=== PATIENT | female | born 1970 | race Caucasian/White ===

== ENCOUNTER 2017-09-07 14:15 | Emergency (ER) | payer OTHER, MEDICAID, SELFPAY ==
[2017-09-07 14:17] VITALS: BP 104/80; PULSE 111; RESP 22; TEMP 36.9; O2SAT 94
--- NOTE | 2017-09-07 14:45 | ED.ALCOHOL ---
HPI - Alcohol <ODALIS Medina - Last Filed: 09/07/17 23:34> General Chief Complaint: Toxicology Problem Stated Complaint: DETOX Time Seen by Provider: 09/07/17 14:45 History of Present Illness HPI narrative: 46-year-old female with history of alcoholism here for medical clearance for detox at [facility]. Patient has a bed available and needs medical clearance. She states her last alcohol intake was earlier today where she had approximately 2 beers. She states that she is under increased stress right now as there is a court date tomorrow for custody of her son. She denies suicidal ideation at this time however she states that she might have suicidal thoughts if she cannot see her son she denies any plan. No was subtle ideation. She denies any illicit drug use. No other concerns or complaints at this time. complaint: medical clearance for detox facility Related Data Home Medications Medication Instructions Recorded Confirmed chlordiazepoxide HCl 25 mg PO Q6H 09/07/17 09/07/17 lorazepam 1 tab PO Q6H 09/07/17 09/07/17 Previous Rx's Medication Instructions Recorded lorazepam See Label Instructions .ROUTE 09/07/17 .COMPLEX #18 tab ondansetron 4 mg PO Q6-8H PRN #10 tab 09/07/17 Allergies Allergy/AdvReac Type Severity Reaction Status Date / Time No Known Drug Allergies Allergy Verified 09/07/17 14:19 Review of Systems <ODALIS Medina - Last Filed: 09/07/17 23:34> Constitutional Denies chills, Denies fever(s), Denies lethargy and Denies weakness Eyes Denies change in vision, Denies eye discharge, Denies irritation and Denies loss of vision ENT Ears, Nose, Mouth, and Throat: Denies change in voice, Denies neck pain and Denies sore throat Cardiovascular Denies chest pain, Denies irregular heart rhythm, Denies lightheadedness, Denies palpitations, Denies dyspnea, Denies dyspnea on exertion and Denies orthopnea Respiratory Denies cough, Denies dyspnea, Denies dyspnea on exertion and Denies wheezing Gastrointestinal Gastrointestinal: Denies abdominal pain, Denies change in bowel habits, Denies diarrhea, Denies nausea and Denies vomiting Genitourinary Denies hematuria, Denies flank pain, Denies urinary incontinence and Denies urinary urgency Musculoskeletal Denies neck pain Integumentary/Breasts Denies pruritus, Denies erythema, Denies rash and Denies wounds Neurologic Denies loss of vision and Denies weakness Psychiatric Reports as per HPI, Denies homicidal ideation and Denies suicidal ideation Comments: Request alcohol detox Endocrine Denies palpitations Allergic/Immunologic Denies wheezing Exam <ODALIS Medina - Last Filed: 09/07/17 23:34> Initial Vital Signs Initial Vital Signs: Vital Signs Temperature 98.5 F 09/07/17 14:17 Pulse Rate 111 H 09/07/17 14:17 Respiratory Rate 22 09/07/17 14:17 Blood Pressure 104/80 09/07/17 14:17 Pulse Oximetry 94 09/07/17 14:17 Const General: cooperative and well developed Nutritional Appearance: well nourished Orientation: alert, awake, oriented x3 and not confused HENMT Nose: nasal discharge Face and sinus: sinus tenderness and dry mucous membranes Mouth: oral mucosae normal and moist mucous membranes Eyes Conjunctivae: conjunctivae normal Sclera: sclerae normal Pupils: PERRL EOM: EOM intact bilaterally Resp Effort & Inspection: normal respiratory effort, able to speak in complete sentences, no respiratory distress and no use of accessory muscles Auscultation: clear to auscultation bilaterally, no rales, no rhonchi and no wheezes Cardio Rate: regular rate Rhythm: regular rhythm Heart Sounds: no click, no gallops, no murmurs and no rubs GI Inspection: non-distended Palpation: soft, no hepatosplenomegaly, No guarding, No pulsatile mass and No tender Auscultation: normal bowel sounds General: No CVA tenderness Psych Speech and Movement: speech and movement normal and speech clear Mood: irritable mood Affect: normal affect Attitude: cooperative Thought Process: normal Thought Content: normal <Ziggy Silver DO - Last Filed: 09/14/17 07:11> Initial Vital Signs Initial Vital Signs: Vital Signs Temperature 98.5 F 09/07/17 14:17 Pulse Rate 111 H 09/07/17 14:17 Respiratory Rate 22 09/07/17 14:17 Blood Pressure 104/80 09/07/17 14:17 Pulse Oximetry 94 09/07/17 14:17 Course <ODALIS Medina - Last Filed: 09/07/17 23:34> Orders Ordered: Discontinued Medications Lorazepam (Ativan) 1 mg PO NOW ONE Stop: 09/07/17 16:38 Last Admin: 09/07/17 16:46 Dose: 1 mg Ondansetron HCl (Zofran Odt) 4 mg PO NOW ONE Stop: 09/07/17 15:15 Last Admin: 09/07/17 15:15 Dose: 4 mg Vital Signs - 8 hr 09/07/17 17:53 Pulse Rate 88 Respiratory Rate 12 Blood Pressure [Left Arm] 138/78 H Pulse Oximetry 99 <Ziggy Silver DO - Last Filed: 09/14/17 07:11> Orders Ordered: Discontinued Medications Lorazepam (Ativan) 1 mg PO NOW ONE Stop: 09/07/17 16:38 Last Admin: 09/07/17 16:46 Dose: 1 mg Ondansetron HCl (Zofran Odt) 4 mg PO NOW ONE Stop: 09/07/17 15:15 Last Admin: 09/07/17 15:15 Dose: 4 mg Vital Signs - 8 hr 09/07/17 17:53 Pulse Rate 88 Respiratory Rate 12 Blood Pressure [Left Arm] 138/78 H Pulse Oximetry 99 MDM - Alcohol <ODALIS Medina - Last Filed: 09/07/17 23:34> Lab Data Result diagrams: 09/07/17 15:41 09/07/17 15:41 Labs: Lab Results 09/07/17 09/07/17 09/07/17 Range/Units 15:30 15:41 15:41 WBC 5.4 (4.5-11.0) X10^3/uL RBC 4.40 (4.0-5.2) X10^6/uL Hgb 14.1 (12.0-16.0) g/dL Hct 42.0 (36-46) % MCV 95.5 (80-100) fL MCH 32.2 (26-34) PG MCHC 33.7 (30-36) % RDW 17.9 H (11.6-14.8) % Plt Count 124 L (150-400) X10^3/uL Neut % (Auto) 37.4 L (50-75) % Lymph % (Auto) 51.5 H (25-40) % Roosevelt % (Auto) 8.5 (3-14) % Eos % (Auto) 1.9 L (2-4) % Baso % (Auto) 0.7 (0-2) % Neut # (Auto) 2000 L (4287-9797) /uL Sodium 139 (137-145) mmol/L Potassium 4.0 (3.4-5.1) mmol/L Chloride 100 (98-107) mmol/L Carbon Dioxide 26 (22-32) mmol/L BUN 11 (7-17) mg/dL Creatinine 0.70 (0.52-1.04) mg/dL Estimated GFR > 60.0 (>60) mL/min BUN/Creatinine Ratio 15.7 (6-22) Glucose 86 (70-100) mg/dL Calcium 9.0 (8.4-10.2) mg/dL Total Bilirubin 0.6 (0.2-1.3) mg/dL AST 475 H (14-36) IU/L ALT 195 H (9-52) IU/L Alkaline Phosphatase 104 (38-126) U/L Total Protein 7.1 (6.3-8.2) g/dL Albumin 4.2 (3.5-5.0) g/dL Globulin 2.9 (1.7-4.1) g/dL Albumin/Globulin Ratio 1.4 (1.0-2.8) TSH (0.47-4.68) uIU/mL Urine Opiates Screen Negative (Negative) Ur Oxycodone Screen Negative (Negative) Urine Methadone Screen Negative (Negative) Ur Barbiturates Screen Negative (Negative) U Tricyclic Antidepress Negative (Negative) Ur Phencyclidine Scrn Negative (Negative) Ur Amphetamines Screen Negative (Negative) U Methamphetamines Scrn Negative (Negative) Ur MDMA Scrn (Ecstasy) Negative (Negative) U Benzodiazepines Scrn Positive H (Negative) Urine Cocaine Screen Negative (Negative) U Marijuana (THC) Screen Negative (Negative) 09/07/17 Range/Units 15:41 WBC (4.5-11.0) X10^3/uL RBC (4.0-5.2) X10^6/uL Hgb (12.0-16.0) g/dL Hct (36-46) % MCV (80-100) fL MCH (26-34) PG MCHC (30-36) % RDW (11.6-14.8) % Plt Count (150-400) X10^3/uL Neut % (Auto) (50-75) % Lymph % (Auto) (25-40) % Roosevelt % (Auto) (3-14) % Eos % (Auto) (2-4) % Baso % (Auto) (0-2) % Neut # (Auto) (1885-9133) /uL Sodium (137-145) mmol/L Potassium (3.4-5.1) mmol/L Chloride (98-107) mmol/L Carbon Dioxide (22-32) mmol/L BUN (7-17) mg/dL Creatinine (0.52-1.04) mg/dL Estimated GFR (>60) mL/min BUN/Creatinine Ratio (6-22) Glucose (70-100) mg/dL Calcium (8.4-10.2) mg/dL Total Bilirubin (0.2-1.3) mg/dL AST (14-36) IU/L ALT (9-52) IU/L Alkaline Phosphatase (38-126) U/L Total Protein (6.3-8.2) g/dL Albumin (3.5-5.0) g/dL Globulin (1.7-4.1) g/dL Albumin/Globulin Ratio (1.0-2.8) TSH 0.48 (0.47-4.68) uIU/mL Urine Opiates Screen (Negative) Ur Oxycodone Screen (Negative) Urine Methadone Screen (Negative) Ur Barbiturates Screen (Negative) U Tricyclic Antidepress (Negative) Ur Phencyclidine Scrn (Negative) Ur Amphetamines Screen (Negative) U Methamphetamines Scrn (Negative) Ur MDMA Scrn (Ecstasy) (Negative) U Benzodiazepines Scrn (Negative) Urine Cocaine Screen (Negative) U Marijuana (THC) Screen (Negative) MDM Narrative Medical decision making narrative: CBC was obtained and was unremarkable. Chem panel shows elevated AST and ALT however is consistent with her prior lab values. TSH was obtained and was normal. Initial Breathalyzer was at 0.158. Rapid urine drug screen shows positive for benzodiazepines no other positive results. She is medically cleared for inpatient alcohol detox with prescription for Ativan taper dose and Zofran. Follow up with primary care provider. Return emergency room for any worsening symptoms. <Ziggy Silver, DO - Last Filed: 09/14/17 07:11> Lab Data Labs: Lab Results 09/07/17 09/07/17 09/07/17 Range/Units 15:30 15:41 15:41 WBC 5.4 (4.5-11.0) X10^3/uL RBC 4.40 (4.0-5.2) X10^6/uL Hgb 14.1 (12.0-16.0) g/dL Hct 42.0 (36-46) % MCV 95.5 (80-100) fL MCH 32.2 (26-34) PG MCHC 33.7 (30-36) % RDW 17.9 H (11.6-14.8) % Plt Count 124 L (150-400) X10^3/uL Neut % (Auto) 37.4 L (50-75) % Lymph % (Auto) 51.5 H (25-40) % Roosevelt % (Auto) 8.5 (3-14) % Eos % (Auto) 1.9 L (2-4) % Baso % (Auto) 0.7 (0-2) % Neut # (Auto) 2000 L (4920-3395) /uL Sodium 139 (137-145) mmol/L Potassium 4.0 (3.4-5.1) mmol/L Chloride 100 (98-107) mmol/L Carbon Dioxide 26 (22-32) mmol/L BUN 11 (7-17) mg/dL Creatinine 0.70 (0.52-1.04) mg/dL Estimated GFR > 60.0 (>60) mL/min BUN/Creatinine Ratio 15.7 (6-22) Glucose 86 (70-100) mg/dL Calcium 9.0 (8.4-10.2) mg/dL Total Bilirubin 0.6 (0.2-1.3) mg/dL AST 475 H (14-36) IU/L ALT 195 H (9-52) IU/L Alkaline Phosphatase 104 (38-126) U/L Total Protein 7.1 (6.3-8.2) g/dL Albumin 4.2 (3.5-5.0) g/dL Globulin 2.9 (1.7-4.1) g/dL Albumin/Globulin Ratio 1.4 (1.0-2.8) TSH (0.47-4.68) uIU/mL Urine Opiates Screen Negative (Negative) Ur Oxycodone Screen Negative (Negative) Urine Methadone Screen Negative (Negative) Ur Barbiturates Screen Negative (Negative) U Tricyclic Antidepress Negative (Negative) Ur Phencyclidine Scrn Negative (Negative) Ur Amphetamines Screen Negative (Negative) U Methamphetamines Scrn Negative (Negative) Ur MDMA Scrn (Ecstasy) Negative (Negative) U Benzodiazepines Scrn Positive H (Negative) Urine Cocaine Screen Negative (Negative) U Marijuana (THC) Screen Negative (Negative) 09/07/17 Range/Units 15:41 WBC (4.5-11.0) X10^3/uL RBC (4.0-5.2) X10^6/uL Hgb (12.0-16.0) g/dL Hct (36-46) % MCV (80-100) fL MCH (26-34) PG MCHC (30-36) % RDW (11.6-14.8) % Plt Count (150-400) X10^3/uL Neut % (Auto) (50-75) % Lymph % (Auto) (25-40) % Roosevelt % (Auto) (3-14) % Eos % (Auto) (2-4) % Baso % (Auto) (0-2) % Neut # (Auto) (8720-1732) /uL Sodium (137-145) mmol/L Potassium (3.4-5.1) mmol/L Chloride (98-107) mmol/L Carbon Dioxide (22-32) mmol/L BUN (7-17) mg/dL Creatinine (0.52-1.04) mg/dL Estimated GFR (>60) mL/min BUN/Creatinine Ratio (6-22) Glucose (70-100) mg/dL Calcium (8.4-10.2) mg/dL Total Bilirubin (0.2-1.3) mg/dL AST (14-36) IU/L ALT (9-52) IU/L Alkaline Phosphatase (38-126) U/L Total Protein (6.3-8.2) g/dL Albumin (3.5-5.0) g/dL Globulin (1.7-4.1) g/dL Albumin/Globulin Ratio (1.0-2.8) TSH 0.48 (0.47-4.68) uIU/mL Urine Opiates Screen (Negative) Ur Oxycodone Screen (Negative) Urine Methadone Screen (Negative) Ur Barbiturates Screen (Negative) U Tricyclic Antidepress (Negative) Ur Phencyclidine Scrn (Negative) Ur Amphetamines Screen (Negative) U Methamphetamines Scrn (Negative) Ur MDMA Scrn (Ecstasy) (Negative) U Benzodiazepines Scrn (Negative) Urine Cocaine Screen (Negative) U Marijuana (THC) Screen (Negative) Discharge Plan Departure Patient Disposition: [facility] Clinical Impression: Alcoholic intoxication Discharge Date/Time: 09/07/17 17:55 Interventions: ED Discharge Assessment Last Done: 09/07/17 17:54 Activity Restrictions/Additional Instructions: Alcohol detoxication care as directed by [facility]. Use Ativan taper dose as prescribed. Use Zofran as needed for nausea. Follow up with primary care provider. Return emergency room for any worsening symptoms. Prescriptions: New lorazepam 1 mg tablet See Label Instructions .ROUTE .COMPLEX Qty: 18 RF: 0 ondansetron 4 mg tablet,disintegrating 4 mg PO Q6-8H PRN (Reason: nausea and vomiting) Qty: 10 RF: 0 No Action lorazepam 0.5 mg Tablet 1 tab PO Q6H RF: 0 chlordiazepoxide HCl 25 mg Capsule 25 mg PO Q6H RF: 0 Referrals: Harman Okeefe MD [Primary Care Provider] - <Ziggy Silver DO - Last Filed: 09/14/17 07:11> Cosign ED Attending Rhonda Attestation: I was available for consultation during this patient's emergency department encounter
[2017-09-07] MEDS: ONDANSETRON 4 MG ODT PO (15:15)
[2017-09-07 15:42] LABS: Urine Amphetamines Negative (Negative); Urine Barbiturates Negative (Negative); Urine Benzodiazepines Positive (Negative); Urine Cocaine Negative (Negative); Urine MDMA Negative (Negative); Urine Methadone Negative (Negative); Urine Methamphetamines Negative (Negative); Urine Morphine/Opi cutoff 2000 Negative (Negative); Urine Oxycodone Negative (Negative); Urine Phencyclidine Negative (Negative); Urine Tetrahydrocannabinol Negative (Negative); Urine Tricyclic Antidepressant Negative (Negative)
[2017-09-07 15:50] LABS: Add Manual Diff / Slide Review NO; Basophils Percent Auto 0.7 % (0-2); Eosinophils Percent Auto 1.9 % (2-4); Hemoglobin 14.1 g/dL (12.0-16.0); Lymphocytes Percent Auto 51.5 % (25-40); Mean Corpuscular HGB Conc 33.7 % (30-36); Mean Corpuscular Hemoglobin 32.2 PG (26-34); Mean Corpuscular Volume 95.5 fL (80-100); Monocytes Percent Auto 8.5 % (3-14); Neutrophils Absolute Auto 2000 /uL (3000-5900); Neutrophils Percent Auto 37.4 % (50-75); Platelet Count 124 X10^3/uL (150-400); Red Cell Distribution Width 17.9 % (11.6-14.8); White Blood Cell Count 5.4 X10^3/uL (4.5-11.0)
[2017-09-07 16:09] LABS: Alanine Aminotransferase 195 IU/L (9-52); Albumin 4.2 g/dL (3.5-5.0); Albumin Globulin Ratio 1.4 (1.0-2.8); Alkaline Phosphatase 104 U/L (38-126); Aspartate Aminotransferase 475 IU/L (14-36); BUN Creatinine Ratio 15.7 (6-22); Bilirubin Total 0.6 mg/dL (0.2-1.3); Blood Urea Nitrogen 11 mg/dL (7-17); Carbon Dioxide 26 mmol/L (22-32); Chloride 100 mmol/L (98-107); Estimated Glomerular Filt Rate > 60.0 mL/min (>60); Globulin 2.9 g/dL (1.7-4.1); Glucose 86 mg/dL (70-100); HEMOLYSIS 29 (0-50); Sodium 139 mmol/L (137-145); Total Protein 7.1 g/dL (6.3-8.2)
--- NOTE | 2017-09-07 16:24 | CM.SWNOTE ---
BIRDCAGE ASSEMBLER Note: Received call from Emergency Room staff requesting assistance with Alcohol Detox placement. Pt. currently undergoing medical clearance. Once completed ED staff asked to fax records to [facility] at [phone]. Patient will have bed at [facility] this evening. RN to call once patient ready to go at [phone]. Sandy at [facility] requesting patient come with script for ativan taper dose. [facility] staff aware. P: Anticipate d/c to [facility] once patient medically cleared. Patient agreeable as of right now. Unclear if that will change. DENISE Ballard
--- NOTE | 2017-09-07 16:43 | PC.NURSE ---
Pt up and down, increased restlessness, walking out of department. Given choice to leave or return to room and chose to return to room. Requested ativan for anxiety and restlessness, given 1 mg po. Tolerating po fluids well. No acute distress. Denies pain / discomfort.
[2017-09-07] MEDS: LORazepam 0.5 MG TABLET 1 MG PO (16:46)
[2017-09-07 16:51] LABS: Thyroid Stimulating Hormone 0.48 uIU/mL (0.47-4.68)
--- NOTE | 2017-09-07 17:35 | PC.NURSE ---
out with father/ smoking/ both promise to return
[2017-09-07 17:53] VITALS: BP 138/78; PULSE 88; RESP 12; O2SAT 99
== END 2017-09-07 17:55 | disposition short-term general hospital (02) ==
PROVIDERS: Emergency Provider Nurse Practitioner Family; Family Provider Internal Medicine; PCP Internal Medicine
DX: F10.929 Alcohol use, unspecified with intoxication, unspecified (principal)
CPT/HCPCS: 80053; 80305; 82075; 84443; 85025; 99282; 99283

== ENCOUNTER → 2019-11-12 16:44 | Outpatient (CLI) | payer OTHER, MEDICAID, SELFPAY ==
[2019-11-12 17:11] LABS: Add Manual Diff / Slide Review NO; Basophils Absolute Auto 200 /uL (0-100); Basophils Percent Auto 2.5 % (0-2); Eosinophils Absolute Auto 100 /uL (0-450); Eosinophils Percent Auto 0.8 % (2-4); Hemoglobin 11.2 g/dL (12.0-16.0); Lymphocytes Absolute Auto 1800 /uL (1100-4500); Mean Corpuscular HGB Conc 33.1 % (30-36); Mean Corpuscular Hemoglobin 28.5 PG (26-34); Mean Corpuscular Volume 86.2 fL (80-100); Monocytes Absolute Auto 300 /uL (0-900); Monocytes Percent Auto 3.9 % (3-14); Neutrophils Absolute Auto 6300 /uL (1500-7000); Neutrophils Percent Auto 71.8 % (50-75); Platelet Count 272 X10^3/uL (150-400); Red Blood Cell Count 3.95 X10^6/uL (4.0-5.2); Red Cell Distribution Width 13.7 % (11.6-14.8); White Blood Cell Count 8.8 X10^3/uL (4.5-11.0)
[2019-11-12 17:37] LABS: Alanine Aminotransferase 12 IU/L (<35); Albumin 3.9 g/dL (3.5-5.0); Albumin Globulin Ratio 1.3 (1.0-2.8); Alkaline Phosphatase 96 U/L (38-126); Aspartate Aminotransferase 22 IU/L (14-36); BUN Creatinine Ratio 12.7 (6-22); Bilirubin Total 0.2 mg/dL (0.2-1.3); Blood Urea Nitrogen 7 mg/dL (7-17); C-Reactive Protein Quant 1.4 mg/dL (<1.0); Calcium 8.8 mg/dL (8.4-10.2); Carbon Dioxide 29 mmol/L (22-32); Chloride 102 mmol/L (98-107); Estimated Glomerular Filt Rate > 60.0 mL/min (>60); Glucose 122 mg/dL (70-100); HEMOLYSIS < 15 (0-50); Potassium 3.8 mmol/L (3.4-5.1); Sodium 138 mmol/L (137-145); Total Protein 6.9 g/dL (6.3-8.2); Uric Acid 5.1 mg/dL (2.5-6.2)
[2019-11-12 17:42] LABS: Rheumatoid Factor < 8.6 IU/mL (<12.0)
[2019-11-12 17:45] LABS: Erythrocyte Sedimentation Rate 29 MM/HR (0-20)
== END ==
PROVIDERS: Family Provider Internal Medicine; PCP Internal Medicine; Referring Provider Physician Assistant; Visit Provider Physician Assistant
DX: M25.471 Effusion, right ankle (principal); M25.472 Effusion, left ankle
CPT/HCPCS: 36415; 80053; 84550; 85025; 85651; 86140; 86430